=== PATIENT | female | born 1975 | race Hispanic/Latino ===

== ENCOUNTER 2017-12-28 11:30 | Emergency (ER) | payer BC ==
[2017-12-28 12:23] VITALS: BP 100/62
--- NOTE | 2017-12-28 13:55 | Emergency Department Report ---
- General Chief Complaint: Upper Respiratory Infection Stated Complaint: SINUS INFECTION Time Seen by Provider: 12/28/17 13:36 Source: patient Mode of arrival: Ambulatory Limitations: No Limitations - History of Present Illness Initial Comments: This is a 42-year-old female nontoxic, well nourished in appearance, no acute signs of distress presents to the ED with c/o of acute on chronic frontal sinus pain with rhinorrhea and nasal congestion x2 days. Patient denies any stiff neck. Patient denies any trauma to the head. Patient denies thunderclap headache. Patient denies any headache. Denies any fever, chills, nausea, vomiting, abdominal pain, chest pain, short of breath, numbness, tingling, back pain. Patient stated she gets this yearly from higher pollen counts. Patient stated allergies to celecoxib, PCN, and Sumatriptan. MD Complaint: rhinorrhea, nasal congestion, sinus pain -: days(s) (2) Severity: mild Severity scale (0 -10): 8 Quality: aching Consistency: constant Improves With: nothing Worsens With: nothing Associated Symptoms: headache (frontal sinus pain), rhinorrhea, nasal congestion , cough. denies: fever, chills, myalgias, diaphoresis, sore throat, stiff neck , chest pain, shortness of breath, abdominal pain, nausea, vomiting, diarrhea, dysuria, rash, confusion, right sweats, weight loss, epistaxis, hoarseness, ear pain Treatments Prior to Arrival: none - Related Data Previous Rx's Medication Instructions Recorded Last Taken Type Acetaminophen/Codeine [Tylenol 1 tab PO Q6H PRN #12 tab 12/28/17 Unknown Rx /Codeine # 3 tab] Azithromycin [Zithromax Z-SHIRA] 250 mg PO DAILY #6 tablet 12/28/17 Unknown Rx Allergies Allergy/AdvReac Type Severity Reaction Status Date / Time celecoxib [From Celebrex] Allergy Swelling Verified 12/28/17 12:23 Penicillins Allergy Unknown Verified 12/28/17 12:23 sumatriptan [From Imitrex] Allergy Swelling Verified 12/28/17 12:23 ED Review of Systems ROS: Stated complaint: SINUS INFECTION Other details as noted in HPI Constitutional: denies: chills, fever Eyes: denies: eye pain, eye discharge, vision change ENT: denies: ear pain, throat pain Respiratory: denies: cough, shortness of breath, wheezing Cardiovascular: denies: chest pain, palpitations Endocrine: no symptoms reported Gastrointestinal: denies: abdominal pain, nausea, diarrhea Genitourinary: denies: urgency, dysuria, discharge Musculoskeletal: denies: back pain, joint swelling, arthralgia Skin: denies: rash, lesions Neurological: headache (frontal sinus pain). denies: weakness, paresthesias Psychiatric: denies: anxiety, depression Hematological/Lymphatic: denies: easy bleeding, easy bruising ED Past Medical Hx - Past Medical History Hx Psychiatric Treatment: Yes (bipolar) Hx Asthma: Yes Additional medical history: pain management clinic - Surgical History Additional Surgical History: hysterectomy, gastric bypass - Social History Smoking Status: Current Every Day Smoker Substance Use Type: Prescribed - Medications Home Medications: Home Medications Medication Instructions Recorded Confirmed Last Taken Type Acetaminophen/Codeine [Tylenol 1 tab PO Q6H PRN #12 tab 12/28/17 Unknown Rx /Codeine # 3 tab] Azithromycin [Zithromax Z-SHIRA] 250 mg PO DAILY #6 tablet 12/28/17 Unknown Rx ED Physical Exam - General Limitations: No Limitations General appearance: alert, in no apparent distress - Head Head exam: Present: atraumatic, normocephalic - Eye Eye exam: Present: normal appearance Pupils: Present: normal accommodation - ENT ENT exam: Present: mucous membranes moist, TM's normal bilaterally - Expanded ENT Exam Expanded Ear exam: Present: normal external inspection Mouth exam: Present: normal external inspection, tongue normal. Absent: drooling, trismus, muffled voice, tongue elevation, laceration Teeth exam: Present: normal inspection Throat exam: Positive: tonsillar erythema, other (Uvula midline. ). Negative: tonsillomegaly, tonsillar exudate, R peritonsillar mass, L peritonsillar mass - Neck Neck exam: Present: normal inspection, full ROM. Absent: tenderness, meningismus, lymphadenopathy - Respiratory Respiratory exam: Present: normal lung sounds bilaterally. Absent: respiratory distress, wheezes, rales, rhonchi, stridor, chest wall tenderness, accessory muscle use, decreased breath sounds, prolonged expiratory - Cardiovascular Cardiovascular Exam: Present: regular rate, normal rhythm, normal heart sounds. Absent: bradycardia, tachycardia, irregular rhythm, systolic murmur, diastolic murmur, rubs, gallop - GI/Abdominal GI/Abdominal exam: Present: soft, normal bowel sounds - Extremities Exam Extremities exam: Present: normal inspection, full ROM, normal capillary refill - Back Exam Back exam: Present: normal inspection, full ROM - Neurological Exam Neurological exam: Present: alert, oriented X3, CN II-XII intact, normal gait - Expanded Neurological Exam Expanded Patient oriented to: Present: person, place, time Cranial nerves: EOM's Intact: Normal, Gag Reflex: Normal, Facial Sensation: Normal Cerebellar function: Finger to Nose: Normal Upper motor neuron: Pronator Drift: Normal, Sensory Extinction: Normal Sensory exam: Upper Extremity Light Touch: Normal, Upper Extremity Pin Prick: Normal, Upper Extremity Temperature: Normal, UE 2 Point Discrimination: Normal, Lower Extremity Light Touch: Normal, Lower Extremity Pin Prick: Normal, Lower Extremity Temperature: Normal, LE 2 Point Discrimination: Normal Motor strength exam: RUE: 5, LUE: 5, RLE: 5, LLE: 5 Best Eye Response (Estelita): (4) open spontaneously Best Motor Response (Galt): (6) obeys commands Best Verbal Response (Estelita): (5) oriented Estelita Total: 15 - Psychiatric Psychiatric exam: Present: normal affect, normal mood - Skin Skin exam: Present: warm, dry, intact, normal color. Absent: rash ED Course Vital Signs 12/28/17 12:20 Temperature 98.1 F Pulse Rate 87 Respiratory 16 Rate Blood Pressure 100/62 O2 Sat by Pulse 99 Oximetry - Reevaluation(s) Reevaluation #1: 12/28/17 13:55 Patient is speaking in full sentences with no signs of distress noted. ED Medical Decision Making - Medical Decision Making This is a 42-year-old female that presents with sinusitis. Patient is stable and was examined by me. Patient is neurologically stable. There is no stiff neck or neck pain. Vital signs are stable. Patient is afebrile. Patient is discharged with Zpak due to allergies to PCN. Patient was referred to Follow- up with a primary care/neurologist doctor in 3-5 days or if symptoms worsen and continue return to emergency room as soon as possible. At time of discharge, the patient does not seem toxic or ill in appearance. No acute signs of distress noted. Patient agrees to discharge treatment plan of care. No further questions noted by the patient. Critical care attestation.: If time is entered above; I have spent that time in minutes in the direct care of this critically ill patient, excluding procedure time. ED Disposition Clinical Impression: Sinusitis Qualifiers: Sinusitis location: frontal Chronicity: acute Recurrence: non-recurrent Qualified Code(s): J01.10 - Acute frontal sinusitis, unspecified Disposition: TO HOME OR SELFCARE Is pt being admited?: No Does the pt Need Aspirin: No Condition: Stable Instructions: Sinusitis (ED), Azithromycin (By mouth) Additional Instructions: Follow-up with a primary care doctor in 3-5 days or if symptoms worsen and continue return to emergency room as soon as possible. Prescriptions: Acetaminophen/Codeine [Tylenol /Codeine # 3 tab] 1 tab PO Q6H PRN #12 tab PRN Reason: Pain Azithromycin [Zithromax Z-SHIRA] 250 mg PO DAILY #6 tablet Referrals: PRIMARY CAREMD [Primary Care Provider] - 3-5 Days ALAYNA PATEL MD [Staff Physician] - 3-5 Days [facility] [Outside] - 3-5 Days [facility] [Outside] - 3-5 Days Forms: Work/School Release Form(ED)
== END 2017-12-28 14:07 | disposition home or self-care (01) ==
LOC: ED 11:30
DX: J32.1 Chronic frontal sinusitis (principal); F17.200 Nicotine dependence, unspecified, uncomplicated; Z88.0 Allergy status to penicillin; Z88.8 Allergy status to other drugs, medicaments and biological substances
CPT/HCPCS: 99282